=== PATIENT | male | born 1995 | race African-American/Black ===

== ENCOUNTER 2017-07-06 23:18 | Inpatient (IN) | payer BC ==
[~2017-07-06] VITALS: Ht 180.3 cm; Wt 95.3 kg
[2017-07-06] MEDS ORDERED: LIDOCAINE 1% INJ 50 ML MDV IJ ONE (23:44)
[2017-07-06] MEDS ORDERED: TDAP [DIPH/PERTUSSIS/TET] 0.5 ML VIAL IM ONE (23:55)
[2017-07-07] MEDS ORDERED: TDAP [DIPH/PERTUSSIS/TET] 0.5 ML VIAL IM ONE
--- NOTE | 2017-07-07 00:28 | NUR ---
CALLED MD JEYSON WOOD IS [employer]ACLE APPLICATIONS DEVELOPER. HOLLYGED [employer]PLICATIONS DEVELOPER
[2017-07-07] MEDS ORDERED: CEFAZOLIN 1 GM in IV D5W 50 ML IV ONE (00:30)
--- NOTE | 2017-07-07 00:30 | NUR ---
MD BENÍTEZ IS SPEAKING WITH [facility]
[2017-07-07] MEDS ORDERED: CEFAZOLIN 1 GM ONE (00:44)
--- NOTE | 2017-07-07 00:48 | NUR ---
BED 314-2
[2017-07-07] MEDS ORDERED: ACETAMINOPHEN 325 MG TABLET PO PRN (01:00)
[2017-07-07] MEDS ORDERED: Z GUARD REMEDY 2 OZ OINT TP PRN (01:00)
[2017-07-07] MEDS ORDERED: MORPHINE SULFATE INJ 2 MG/ML DISP.SYRIN IV PRN (01:00)
[2017-07-07] MEDS ORDERED: HYDROCODONE/APAP 10/325MG 1 EA TABLET PO PRN (01:00)
[2017-07-07] MEDS ORDERED: MAGNESIUM HYDROXIDE 30 ML UDC PO PRN (01:00)
[2017-07-07] MEDS ORDERED: MAG HYDROX/AL HYDROX/SIMETH 30 ML UDC PO PRN (01:00)
[2017-07-07] MEDS ORDERED: HYDROCODONE/APAP 5/325MG 1 EACH TABLET PO PRN (01:00)
[2017-07-07] MEDS ORDERED: ZOLPIDEM TARTRATE 5 MG TABLET PO PRN (01:00)
[2017-07-07] MEDS ORDERED: ONDANSETRON HCL/PF 4 MG/2 ML VIAL IVP PRN (01:00)
--- NOTE | 2017-07-07 01:10 | NUR ---
PT TRANSPORTED TO [facility] BED VIA WHEELCHAIR BY EMT
[2017-07-07 01:25] VITALS: BP 145/69
--- NOTE | 2017-07-07 01:25 | NUR ---
MS/RN NOTES NEW ADMITED PATIENT IS A 22 YO MALE W/ RIGHT FOOT FX DX. ALERT, ORIENTED X4, ABLE TO VERBALIZE NEEDS. CALM AND COOPERATIVE TO CARE. RESPIRATIONS EVEN AND UNLABORED. HAS HX OF ASTHMA. SKIN WARM TO TOUCH. PAIN AT 4/10 BUT TOLERABLE. MD JAMISON W/ ORDERS, PROVIDED ROOM ORIENTATION, BELONGING CHECK, RIGHT FOOT BIG TOE OBSERVE W/ DRESSING,. WILL CONTINUE TO MONITOR.
[2017-07-07 01:29] LABS: BASOPHILS % (AUTO) 0.3 % (0.0-2.0); EOSINOPHILS # (AUTO) 0.2 /CMM (0.0-0.7); EOSINOPHILS % (AUTO) 2.2 % (0.0-6.0); HEMATOCRIT 41 % (39-51); HEMOGLOBIN 13.5 g/dL (13.5-17.5); LYMPHOCYTES # (AUTO) 2.1 /CMM (0.8-4.8); LYMPHOCYTES % (AUTO) 20.3 % (20.0-44.0); MEAN CORPUSCULAR HEMOGLOBIN 30 PG (26.0-33.0); MEAN CORPUSCULAR HGB CONC 33 g/dl (31.0-36.0); MEAN CORPUSCULAR VOLUME 93 fL (80-96); MONOCYTES # (AUTO) 1.1 /CMM (0.1-1.30); MONOCYTES % (AUTO) 10.8 % (2.0-12.0); NEUTROPHILS % (AUTO) 66.4 % (43.0-81.0); PLATELET COUNT (AUTO) 223 /CMM (150-450); RDW COEFFICIENT OF VARIATION 12.8 (11.5-15.0); RED BLOOD CELL COUNT(AUTO) 4.45 MIL/uL (4.5-6.0); WHITE BLOOD COUNT (AUTO) 10.5 K/uL (4.3-11.0)
[2017-07-07 01:37] LABS: CALCIUM, SERUM 9.1 mg/dL (8.5-10.1); POTASSIUM 3.5 mmol/L (3.5-5.1)
[2017-07-07 01:40] LABS: INR 1.06 (0.87-1.13)
--- NOTE | 2017-07-07 06:32 | NUR ---
314-2 MS/RN CLOSING NOTES PATIENT ALERT, ORIENTEDX3, ABLE TO VERBALIZE NEEDS/ COOPERATIVE TO CARE.RIGHT BIG TOE HAS DRESSING ON,, WILL CONTINUE MONITORING.
[2017-07-07 08:00] VITALS: BP 134/81
[2017-07-07] MEDS ORDERED: ALBU18HF2 IH (08:30)
--- NOTE | 2017-07-07 08:30 | NUR ---
DR. SUE IN RT. FOOT DRESSING REMOVED,AND REWRAPPED BY .SOME SANGUINOUS DRAINAGE ON OUTER DRSG. REQUESTS RN DOES NOT REMOVE DRSG.SO NO PHOTO TAKEN.
[2017-07-07] MEDS ORDERED: ANESTHESIA TRAY IN PYXIS 1 EA TRAY MC ONE (09:13)
--- NOTE | 2017-07-07 09:20 | NUR ---
left for or.
[2017-07-07] MEDS ORDERED: MIDAZOLAM HCL 2 MG/2ML VIAL ONE (09:29)
[2017-07-07] MEDS ORDERED: BACITRACIN 50000 UNITS/VIAL ONE ×2 (10:11→10:26)
--- NOTE | 2017-07-07 11:55 | NUR ---
returned to [facility] stable.
[2017-07-07] MEDS ORDERED: CEFAZOLIN 2 GM in IV D5W 50 ML IV ONE ×3 (12:00→18:00)
[2017-07-07] MEDS: oxyCODONE IR immediate release 5 MG CAPSULE PO PRN ×2 (14:44→18:34)
--- NOTE | 2017-07-07 15:30 | NUR ---
dr. alicea and dr. cherry in to see pt.
[2017-07-07 16:05] VITALS: BP 142/85
--- NOTE | 2017-07-07 18:15 | NUR ---
voided post-op.
--- NOTE | 2017-07-07 18:30 | NUR ---
med. x2 with oxycodone.mother at bedside.
--- NOTE | 2017-07-07 19:30 | NUR ---
RN NOTES: RECEIVED LYING COMFORTABLY IN BED, ALERT AND ORRIENTEDX4,LEFT AC G#20 INTACT, BACK ON REGULAR DIET,S/P DEBRIDEMENT ON THE RIGHT GREAT TOE OPEN FRACTURE(DISTAL PHALANK) RIGHT FOOT COVERED WITH ITALIA WRAP, VERY SMALL AMOUNT OF BLOOD NOTED ON THE RIGHT TOE DRESSING;ON POST-OP SHOE AND ICE PACK.FALL,SAFETY AND ASPIRATION PRECAUTION OBSERVED,BED LOW AND LOCKED, CALL LIGHT WITHIN EASY REACH,
[2017-07-07 20:00] VITALS: BP 124/69
--- NOTE | 2017-07-07 20:09 | NUR ---
RN NOTES: PATIENT REQUESTING FOR MEDICATION TO SLEEP, CALLED DR. TALLEY REGISTERED ART THERAPIST, SPOKE WITH DR.RICHARD EVANS, OK TO RESUME PRE-OP AMBIEN 5MG Q HS PRN FOR SLEEP, EXPLAINED TO PATIENT,HE WANTS TO TAKE IT WITH TYLENOL AT 2100.KEPT COMFORTABLE IN BED , BED LOW AND LOCKESD, CALL LIGHT WITHIN EASY REACH.
--- NOTE | 2017-07-07 21:15 | NUR ---
RN NOTES; SLEEPING PILL AND PAIN MEDICATION GIVEN PER PATIENT REQUEST, NON PHARMACOLOGIC INTERVENTION RENDERED, DIM LIGHT AND PALYING MELOWM MUSIC TO ENHANCE RELAXATION,CALL LIGHT WITHIN EASY REACH.
--- NOTE | 2017-07-08 01:29 | NUR ---
RN NOTES: ABLE TO SLEEP, KEPT IN COMFORTABLE POSITION, KEPT ON MONITORING,CALL LIGHT WITHIN EASY REACH.
[2017-07-08] MEDS: oxyCODONE IR immediate release 5 MG CAPSULE PO PRN (04:54)
--- NOTE | 2017-07-08 04:54 | NUR ---
RN NOTES: AWAKE,REQUEST FOR PAIN MEDICATION ,10/10 PAIN ON THE RIGHT FOOT, PAIN MEDICATION GIVEN, NON PHARMACOLOGIC INTERVENTION RENDERED,KEPT CALL LIGHT WITHIN EASY REACH.
[2017-07-08 06:34] LABS: BASOPHILS % (AUTO) 0.2 % (0.0-2.0); EOSINOPHILS % (AUTO) 0.3 % (0.0-6.0); HEMATOCRIT 42 % (39-51); HEMOGLOBIN 13.6 g/dL (13.5-17.5); LYMPHOCYTES # (AUTO) 2.2 /CMM (0.8-4.8); LYMPHOCYTES % (AUTO) 17.4 % (20.0-44.0); MEAN CORPUSCULAR HEMOGLOBIN 31 PG (26.0-33.0); MEAN CORPUSCULAR HGB CONC 33 g/dl (31.0-36.0); MEAN CORPUSCULAR VOLUME 94 fL (80-96); MONOCYTES # (AUTO) 1.6 /CMM (0.1-1.30); MONOCYTES % (AUTO) 12.6 % (2.0-12.0); NEUTROPHILS # (AUTO) 8.8 /CMM (1.8-8.9); NEUTROPHILS % (AUTO) 69.5 % (43.0-81.0); PLATELET COUNT (AUTO) 227 /CMM (150-450); RDW COEFFICIENT OF VARIATION 12.3 (11.5-15.0); RED BLOOD CELL COUNT(AUTO) 4.46 MIL/uL (4.5-6.0); WHITE BLOOD COUNT (AUTO) 12.7 K/uL (4.3-11.0)
--- NOTE | 2017-07-08 06:35 | NUR ---
RN NOTES; HE VERBALIZE 'I FEEL OK' AFTER PAIN MEDICATION GIVEN 01/24,LOOKS COMFORTABLE WHILE WATCHING SHOW IN HIS LAPTOP,ENDORSED FOR CONTINUITY OF CARE, FOR POSSIBLE DISCHARGE TODAY,NWB ON RE FOR 3-4 WEEKS,F/U WITH 3-4 DAYS FOR WOUND CHECK IN THE OFFICE,RIGHT FOOT KEPT ELEVATE AND ICE PACK APPLIED.
[2017-07-08 06:45] LABS: CALCIUM, SERUM 8.9 mg/dL (8.5-10.1); CREATININE 0.8 mg/dL (0.6-1.3); MAGNESIUM 1.9 mg/dL (1.8-2.4); PHOSPHORUS 4.3 mg/dL (2.5-4.9); POTASSIUM 3.6 mmol/L (3.5-5.1)
--- NOTE | 2017-07-08 07:21 | NUR ---
MS/RN OPENING NOTES: RECEIVED PT AWAKE IN BED IN NO ACUTE SIGNS OF DISTRESS. A/O X4, VERBALLY RESPONSIVE WITH NO C/O PAIN OR DISCOMFORTS AT THIS TIME. IV ACCESS ON LEFT AC G#20 INTACT AND PATENT. S/P DEBRIDEMENT (07/07/2017) ON THE RIGHT GREAT TOE OPEN FRACTURE (DISTAL PHALANX), RIGHT FOOT COVERED WITH ITALIA WRAP, VERY SMALL AMOUNT OF DRY BLOOD NOTED ON THE RIGHT TOE DRESSING. BED IN LOW AND LOCKED POSITION. CALL LIGHT WITHIN EASY REACH OF PT. WILL CONTINUE TO MONITOR PT ACCORDINGLY.
[2017-07-08 08:00] VITALS: BP 133/60
[2017-07-08] MEDS ORDERED: ASPIRIN 325 MG TABLET PO SCH (09:00)
--- NOTE | 2017-07-08 09:49 | NUR ---
RN NOTES RECEIVED CALL FROM DR CESIA TALLEY AND ASKING WHY PT WASN'T DISCHARGE YESTERDAY, I SAID NO DC ORDER YET FROM PRIMARY PHYSICIAN. HE SAID NOT TO CHANGE DRESSING ON PT'S RIGHT FOOT, HE WILL BE THE ONE TO CHANGE IT ONCE HE SEES PT IN 3-4 DAYS IN HIS CLINIC. EXPLAINED TO PT AND MOTHER AND THEY VERBALIZED UNDERSTANDING. WILL CONTINUE TO MONITOR.
--- NOTE | 2017-07-08 11:36 | NUR ---
RN NOTES PT SEEN BY DR JOSEPH TODAY WITH ORDER TO DISCHARGE PT HOME WITH HOME CARE. [facility] NEMESIO AWARE AND WILL ARRANGE HOMECARE FOR PT UNDER PEGASUS. PER CHARGE NURSE, NEMESIO WILL CALL PATIENT TOMORROW REGARDING HIS HOME CARE PLAN. EXPLAINED TO PT AND VERBALIZED UNDERSTANDING.
[2017-07-08] MEDS ORDERED: ASPI325T2 PO (12:37)
[2017-07-08] MEDS ORDERED: ACET-868 PO (12:37)
--- NOTE | 2017-07-08 15:07 | NUR ---
RN DISCHARGED NOTES PT DISCHARGED HOME IN STABLE CONDITION. A/O X 4 AND VERBALLY RESPONSIVE. HE LEFT UNIT AT 1505H VIA WHEELCHAIR ACCOMPANIED BY TAIL TRIMMER TO THE LOBBY, MOTHER WAITING IN THE LOBBY AND WILL TAKE PT HOME. V/S TAKEN AND RECORDED. PHOTO OF RIGHT FOOT NOT TAKEN, DRESSING INTACT AND WILL BE REMOVED AT DR TALLEY CLINIC IN 3-4 DAYS PER INSTRUCTION (SEE MY PREVIOUS NOTES THIS MORNING). FLU AND PNA VACCINES REFUSED BY PT DESPITE ENCOURAGEMENT. HEALTH TEACHINGS GIVEN TO PT AND MOTHER AND VERBALIZED UNDERSTANDING. MD AND CHARGE NURSE AWARE OF DISCHARGE.
== END 2017-07-08 15:30 | disposition home health service (06) | DRG 517 ==
LOC: ER 23:20 → MED 07-07 01:11
PROVIDERS: ADMIT Internal Medicine; ATTEND Internal Medicine
PROC: 0QH Lower Bones, Insertion (ICD-10-PCS; principal; 2017-07-07 10:17)
DX: S92.421B Displaced fracture of distal phalanx of right great toe, initial encounter for open fracture (principal); J45.909 Unspecified asthma, uncomplicated; X58.XXXA Exposure to other specified factors, initial encounter; Y93.89 Activity, other specified; Y92.009 Unspecified place in unspecified non-institutional (private) residence as the place of occurrence of the external cause
CPT/HCPCS: 36415; 71010-TC; 73620-TC; 73660-TC; 80048-TC; 83735-TC; 84100-TC; 85025-TC; 85730-TC; 87081-TC; 90715; A4217; A4606; A6253; A6402; A6403; J0690; J1100; J2250; J2405; J2704; J3490; J7060; Z7610